=== PATIENT | male | born 1980 | race African-American/Black ===

== ENCOUNTER 2023-06-22 16:13 | Inpatient (IN) | payer OTHER ==
[~2023-06-22] VITALS: Ht 185.4 cm; Wt 90.7 kg
[~2023-06-22 16:13] MED LIST: ZOLPIDEM 5 MG TABLET PO PRN
[2023-06-22] MEDS ORDERED: MAG HYDROX/AL HYDROX/SIMETH 30 ML LIQUID UDC PO PRN (16:45)
[2023-06-22] MEDS ORDERED: IBUPROFEN 600 MG TABLET PO PRN (16:45)
[2023-06-22] MEDS ORDERED: MAGNESIUM HYDROXIDE 30 ML LIQUID UDC PO PRN (16:45)
[2023-06-22] MEDS ORDERED: ZOLPIDEM 5 MG TABLET PO PRN (16:45)
[2023-06-22] MEDS ORDERED: ACETAMINOPHEN ES 500 MG TABLET PO PRN (16:45)
[2023-06-22] MEDS ORDERED: LORAZEPAM 1 MG TABLET PO PRN (16:45)
[2023-06-22] MEDS: RISPERIDONE 4 MG PO SCH (17:22)
[2023-06-22 18:00] VITALS: BP 149/71; TEMP 98.3; O2SAT 98
[2023-06-22 20:00] VITALS: BP 130/78; TEMP 97.9; O2SAT 100
[2023-06-22] MEDS: TRAZODONE 100 MG PO SCH ×2 (20:48→20:51)
[2023-06-23 04:00] VITALS: BP 134/80; TEMP 97.6; O2SAT 99
[2023-06-23] MEDS: RISPERIDONE 4 MG PO SCH (08:03)
[2023-06-23 13:00] VITALS: BP 146/77; TEMP 98; O2SAT 100
[2023-06-23 16:21] VITALS: BP 140/79; TEMP 87.8; O2SAT 99
[2023-06-23 20:31] VITALS: BP 136/85; TEMP 98.2; O2SAT 99
[2023-06-23] MEDS: TRAZODONE 100 MG PO SCH (21:00)
[2023-06-24 04:12] VITALS: BP 141/81; TEMP 97.6; O2SAT 98
[2023-06-24] MEDS: RISPERIDONE 4 MG PO SCH (08:09)
[2023-06-24 16:00] VITALS: BP 118/76; TEMP 98.6; O2SAT 98
[2023-06-24 20:00] VITALS: BP 141/61; TEMP 97.7; O2SAT 98
[2023-06-24] MEDS: TRAZODONE 100 MG PO SCH (22:11)
[2023-06-25] MEDS: RISPERIDONE 4 MG PO SCH (08:55)
[2023-06-25 11:59] VITALS: BP 135/78; TEMP 97.8; O2SAT 96
[2023-06-26] MEDS: TRAZODONE 100 MG PO SCH ×2 (00:44→21:26)
[2023-06-26] MEDS: RISPERIDONE 4 MG PO SCH (08:11)
[2023-06-26 10:30] VITALS: BP 157/86; TEMP 98; O2SAT 96
[2023-06-26 20:00] VITALS: BP 143/81; TEMP 98.5; O2SAT 97
[2023-06-27 09:08] VITALS: BP 140/71; TEMP 98.5; O2SAT 100
[2023-06-27] MEDS: RISPERIDONE 4 MG PO SCH (09:16)
[2023-06-27 11:38] VITALS: BP 144/70; TEMP 98.3; O2SAT 98
[2023-06-27 14:00] VITALS: BP 133/72; TEMP 97.3; O2SAT 93
[2023-06-27 19:53] VITALS: BP 136/63; TEMP 98.1; O2SAT 97
[2023-06-27] MEDS: TRAZODONE 100 MG PO SCH (21:00)
[2023-06-28 07:40] VITALS: BP 132/75; TEMP 98.4; O2SAT 98
[2023-06-28] MEDS: RISPERIDONE 4 MG PO SCH (09:19)
[2023-06-28 12:00] VITALS: BP 132/72; TEMP 97.8; O2SAT 99
[2023-06-28 16:27] VITALS: BP 139/66; TEMP 97.9; O2SAT 99
[2023-06-28 20:00] VITALS: BP 136/73; TEMP 97.7; O2SAT 99
[2023-06-28] MEDS: OLANZAPINE 5 MG TABLET PO SCH (20:59)
[2023-06-28] MEDS: TRAZODONE 100 MG PO SCH (20:59)
[2023-06-29] MEDS: RISPERIDONE 4 MG PO SCH (08:35)
[2023-06-29 11:55] VITALS: BP 135/68; TEMP 98.5; O2SAT 98
[2023-06-29 20:52] VITALS: BP 132/66; TEMP 98.9; O2SAT 97
[2023-06-29] MEDS: TRAZODONE 100 MG TABLET PO SCH (21:01)
[2023-06-29] MEDS: OLANZAPINE 5 MG TABLET PO SCH (21:01)
[2023-06-30 08:00] VITALS: BP 122/69; TEMP 98.6
[2023-06-30] MEDS: RISPERIDONE 4 MG PO SCH (09:30)
[2023-06-30 11:44] VITALS: BP 141/69; TEMP 97.4; O2SAT 99
[2023-06-30 16:00] VITALS: BP 140/75; TEMP 98; O2SAT 98
[2023-06-30 20:25] VITALS: BP 145/80; TEMP 98.9; O2SAT 97
[2023-06-30] MEDS: TRAZODONE 100 MG TABLET PO SCH (21:01)
[2023-07-01] MEDS ORDERED: LORAZEPAM 1 MG TABLET PO PRN (15:00)
[2023-07-01 16:07] VITALS: BP 129/63; TEMP 98.2; O2SAT 96
[2023-07-01 20:00] VITALS: BP 143/71; TEMP 98.1; O2SAT 96
[2023-07-01] MEDS: TRAZODONE 100 MG TABLET PO SCH (21:12)
[2023-07-01] MEDS: ZOLPIDEM 5 MG TABLET PO PRN (22:55)
[2023-07-02 16:24] VITALS: BP 129/71; TEMP 98.5; O2SAT 98
[2023-07-02 20:00] VITALS: BP 122/80; TEMP 98.1; O2SAT 98
[2023-07-02] MEDS ORDERED: TRAZODONE 100 MG TABLET ONE (21:03)
[2023-07-02] MEDS: TRAZODONE 100 MG TABLET PO SCH (21:42)
[2023-07-02] MEDS ORDERED: TRIAMCINOLONE ACET 0.1% OINT 60 GM TUBE TOP PRN ×2 (22:45→23:00)
[2023-07-02] MEDS: ZOLPIDEM 5 MG TABLET PO PRN (23:16)
[2023-07-03 11:30] VITALS: BP 146/86; TEMP 98.9; O2SAT 98
[2023-07-03] MEDS: TRIAMCINOLONE ACET 0.1% OINT 60 GM TUBE TOP PRN (16:39)
[2023-07-03] MEDS: TRAZODONE 100 MG TABLET PO SCH (21:40)
[2023-07-03 23:00] VITALS: BP 126/68; TEMP 97.7; O2SAT 100
[2023-07-04] MEDS: diphenhydrAMINE 50 MG CAPSULE PO PRN
[2023-07-04] MEDS: TRIAMCINOLONE ACET 0.1% OINT 60 GM TUBE TOP PRN (00:04)
[2023-07-04 07:51] VITALS: BP 130/68; TEMP 98; O2SAT 100
[2023-07-04 20:00] VITALS: BP 149/91; TEMP 98.8; O2SAT 98
[2023-07-04] MEDS: TRAZODONE 100 MG TABLET PO SCH (21:01)
[2023-07-05] MEDS: diphenhydrAMINE 50 MG CAPSULE PO PRN (00:37)
[2023-07-05 07:46] VITALS: BP 143/79; TEMP 97.5; O2SAT 97
[2023-07-05 22:06] VITALS: BP 123/79; TEMP 98; O2SAT 99
[2023-07-06] MEDS: ZOLPIDEM 5 MG TABLET PO PRN (00:06)
[2023-07-06] MEDS: TRAZODONE 100 MG TABLET PO SCH ×2 (00:06→22:55)
[2023-07-06 11:25] VITALS: BP 124/73; TEMP 98.2; O2SAT 99
[2023-07-06 20:00] VITALS: BP 124/63; TEMP 98.3; O2SAT 99
[2023-07-07] MEDS: diphenhydrAMINE 50 MG CAPSULE PO PRN (00:02)
[2023-07-07 08:00] VITALS: BP 127/68; TEMP 98.3; O2SAT 100
[2023-07-08] MEDS ORDERED: ZOLPIDEM 5 MG TABLET PO PRN (15:00)
[2023-07-08] MEDS ORDERED: LORAZEPAM 1 MG TABLET PO PRN (15:00)
[2023-07-15] MEDS ORDERED: LORAZEPAM 1 MG TABLET PO PRN (15:00)
[2023-07-15] MEDS ORDERED: ZOLPIDEM 5 MG TABLET PO PRN (15:00)
[2023-07-22] MEDS ORDERED: ZOLPIDEM 5 MG TABLET PO PRN (15:00)
[2023-07-22] MEDS ORDERED: LORAZEPAM 1 MG TABLET PO PRN (15:00)
== END 2023-07-07 11:20 | disposition home or self-care (01) | DRG 951 ==
LOC: MEDSURG3 16:13
PROVIDERS: ADMIT Psychiatry & Neurology Psychiatry; ATTEND Psychiatry & Neurology Psychiatry
DX: Z00.6 Encounter for examination for normal comparison and control in clinical research program (principal); F20.9 Schizophrenia, unspecified
CPT/HCPCS: A4663; G0378; J3590; Q0163